=== PATIENT | male | born 1945 | race Caucasian/White ===

== ENCOUNTER 2023-10-20 11:23 | Emergency (ER) | payer MEDICARE, SELFPAY ==
[2023-10-20 11:42] VITALS: BP 126/83; PULSE 89; RESP 17; TEMP 36.6; O2SAT 99; BMI 31.8
--- NOTE | 2023-10-20 12:07 | ED.EYEPROB ---
HPI - Eye Problem <MARIUSZ Bee - Last Filed: 10/20/23 12:12> General Chief complaint: Eye Problems Stated complaint: L eye bloody, fall 10/16 Time Seen by Provider: 10/20/23 11:56 Source: patient Mode of arrival: Ambulatory History of Present Illness HPI Narrative: 77-year-old male, [employer] , presents to the emergency department with complaints of left eye redness x2 days. Patient did have a fall, after stepping out of his motorhome on October 16, and scratched up his face and glasses but the eye redness did start until the following. No vision changes or eyeball pain. Related Data Home Medications Medication Instructions Recorded Confirmed aspirin 81 mg tablet,delayed 81 mg PO DAILY 10/20/23 10/20/23 release lisinopril 40 mg tablet 40 mg PO DAILY 10/20/23 10/20/23 loratadine 10 mg capsule 10 mg PO DAILY 10/20/23 10/20/23 meloxicam 15 mg tablet 15 mg PO DAILY 10/20/23 10/20/23 metoprolol succinate 100 mg 100 mg PO BID 10/20/23 10/20/23 tablet,extended release 24 hr omeprazole 20 mg capsule,delayed 20 mg PO DAILY 10/20/23 10/20/23 release simvastatin 40 mg tablet 40 mg PO DAILY 10/20/23 10/20/23 tamsulosin 0.4 mg capsule 0.4 mg PO DAILY 10/20/23 10/20/23 triamterene 37.5 1 cap PO DAILY 10/20/23 10/20/23 mg-hydrochlorothiazide 25 mg capsule Allergies Allergy/AdvReac Type Severity Reaction Status Date / Time No Known Drug Allergies Allergy Verified 10/20/23 11:42 Review of Systems <MARIUSZ Bee - Last Filed: 10/20/23 12:12> Review of Systems Narrative: Narrative: See HPI. GENERAL: Denies chills, fatigue, fever, sweats. HEENT: Denies sinus pain, ear pain, sore throat, difficulty swallowing, dizziness. Endorses left eye redness. RESPIRATORY: Denies dyspnea, cough, wheezing, sputum. CARDIOVASCULAR: Denies chest pain, palpitations, edema. GASTROINTESTINAL: Denies nausea, vomiting, abdominal pain, diarrhea, constipation. : Denies dysuria, frequency, incontinence, hematuria, urinary retention, flank pain. MSK: Denies weakness, joint pain, or bony pain. SKIN: Denies rash, skin lesions, or pruritis. NEUROLOGIC: Denies weakness, dizziness, headache, numbness, confusion. PSYCHIATRIC: No concerning psychosocial issues. Patient History <MARIUSZ Bee - Last Filed: 10/20/23 12:12> Social History Smoking Status: Former smoker Smoking Status: Former smoker alcohol intake frequency: other Substance Use Type: does not use Exam <MARIUSZ Bee - Last Filed: 10/20/23 12:12> Narrative Exam Narrative: Exam Narrative: GENERAL: This is a well-nourished, well-developed patient, in no acute distress. HEAD: Atraumatic. Normocephalic. EYES: Pupils equal round and reactive. Extraocular motions intact. No scleral icterus, injection or drainage. Subconjunctival hemorrhage along outer aspect of left eye without limbus involvement. No orbital pain, eyeball pain or pain with EOT. ENT: Nose without bleeding, purulent drainage. Throat without erythema, tonsillar hypertrophy or exudate. Uvula midline. Airway patent. TMs and canals clear. No sinus tenderness. NECK: Trachea midline. No JVD or lymphadenopathy. Nontender. CARDIOVASCULAR: Regular rate and rhythm without murmurs, peripheral pulses intact, cap refill <2 sec. RESPIRATORY: Breath sounds equal and clear bilaterally. No wheezes, rales, or rhonchi. No cough. No increased respiratory effort. No accessory muscle use. GASTROINTESTINAL: Abdomen soft, non-tender, nondistended without guarding or rebound. No suprapubic pain. MSK: Moves all extremities. Normal range of motion, no clubbing or edema. Neurovascularly intact. NEURO: A&O x 3. SKIN: Warm, dry, no rashes or lesions noted. Initial Vital Signs Initial Vital Signs: Vital Signs Temperature 98 F 10/20/23 11:42 Pulse Rate 89 10/20/23 11:42 Respiratory Rate 17 10/20/23 11:42 Blood Pressure 126/83 10/20/23 11:42 Pulse Oximetry 99 10/20/23 11:42 Oxygen Delivery Method Room Air 10/20/23 11:42 Reviewed <Lance Doty DO - Last Filed: 10/20/23 12:36> Initial Vital Signs Initial Vital Signs: Vital Signs Temperature 98 F 10/20/23 11:42 Pulse Rate 89 10/20/23 11:42 Respiratory Rate 17 10/20/23 11:42 Blood Pressure 126/83 10/20/23 11:42 Pulse Oximetry 99 10/20/23 11:42 Oxygen Delivery Method Room Air 10/20/23 11:42 Course <MARIUSZ Bee - Last Filed: 10/20/23 12:12> Vital Signs Vital signs: Vital Signs - 8 hr 10/20/23 11:42 Temperature 98 F Pulse Rate 89 Respiratory Rate 17 Blood Pressure 126/83 Pulse Oximetry 99 Oxygen Delivery Method Room Air <DO Lawrence Wadsworth Last Filed: 10/20/23 12:36> Vital Signs Vital signs: Vital Signs - 8 hr 10/20/23 11:42 Temperature 98 F Pulse Rate 89 Respiratory Rate 17 Blood Pressure 126/83 Pulse Oximetry 99 Oxygen Delivery Method Room Air MDM - Eye Problem <MARIUSZ Bee - Last Filed: 10/20/23 12:12> Differential Diagnosis Differential diagnosis: Likely subconjunctival hemorrhage MDM Narrative Medical decision making narrative: 77-year-old male with left eye redness. Assessment was consistent with a subconjunctival hemorrhage of the left eye. Informed patient that this is self-resolving and no treatment is needed. Discussed worsening symptoms such as a hyphema, that would require a return visit. Discussed plan of care with patient, who verbalized understanding and was agreeable with course of action. Discharge Plan Departure Patient Disposition: Home Clinical Impression: Subconjunctival hemorrhage Instructions: DI for Subconjunctival Hemorrhage Activity Restrictions/Additional Instructions: *You have been diagnosed with subconjunctival hemorrhage. Thank you for coming in and it was a pleasure meeting you. Thank you for your service. The good news is that this is subconjunctival hemorrhage and is self-resolving, therefore no treatment is needed. It should slowly resolve over the next 7 days. For any worsening symptoms that include vision loss, worsening headache pain, intolerable pain, chest pain or shortness of breath, please return to the emergency room immediately. Otherwise, follow up with your family doctor as needed. *What to do: *Please continue to take your regular medications as directed. [ ] New medication prescriptions sent to your pharmacy: [ ] [ ] New medication written as a paper prescription [x ] No new medications given *Please follow up with your primary care provider in 2-3 days, call for an appointment. Let them know you were seen in the Emergency Department and that we ask that you be seen in follow up. We will electronically transmit a record of today's note if your PCP is in our system *If you do not have a primary care provider please contact the [facility] Resource line at [phone]. They will ask some questions about your medical history and help get you set up with a doctor in the community. ? Return to ER if you should have any new, worsening or concerning symptoms, such as worsening pain, severe headache, confusion, chest pain, difficulty breathing, fever greater than 101 F, shaking chills, persistent vomiting to the point that you cannot drink fluids, or other new or worsening symptoms. Prescriptions: No Action meloxicam 15 mg Tablet 15 mg PO DAILY metoprolol succinate 100 mg Tablet Extended Release 24 Hr 100 mg PO BID aspirin [Aspir-81] 81 mg Tablet,Delayed Release (Dr/Ec) 81 mg PO DAILY triamterene-hydrochlorothiazid 37.5-25 mg Capsule 1 cap PO DAILY simvastatin 40 mg Tablet 40 mg PO DAILY tamsulosin 0.4 mg Capsule 0.4 mg PO DAILY omeprazole 20 mg Capsule,Delayed Release(Dr/Ec) 20 mg PO DAILY lisinopril 40 mg Tablet 40 mg PO DAILY loratadine 10 mg Capsule 10 mg PO DAILY Stand Alone Forms: Patient Portal/API ED Sign-out <Lance Doty, DO - Last Filed: 10/20/23 12:36> [facility]: Dr Doty Co-Sign Statement: I was available for consultation during this patient's emergency department visit. This chart is signed by myself for administrative purposes only. I did not have direct contact with this patient during this visit. They were seen independently by the APC.
== END 2023-10-20 12:23 | disposition home or self-care (01) ==
PROVIDERS: Emergency Provider Registered Nurse
DX: H11.32 Conjunctival hemorrhage, left eye (principal)
CPT/HCPCS: 99281; 99282